=== PATIENT | female | born 1955 | race African-American/Black ===

== ENCOUNTER 2017-04-15 22:48 | Emergency (ER) | payer OTHER ==
[~2017-04-15] VITALS: Ht 160 cm; Wt 108.9 kg
== END 2017-04-16 01:00 | disposition home or self-care (01) ==
LOC: ED 22:48
PROC: 0W3Q7ZZ Control Bleeding in Respiratory Tract, Via Natural or Artificial Opening (ICD-10-PCS; principal; 2017-04-15)
DX: R04.0 Epistaxis (principal); I10 Essential (primary) hypertension; F17.200 Nicotine dependence, unspecified, uncomplicated
CPT/HCPCS: 30903; 99282